=== PATIENT | female | born 2005 | race African-American/Black ===

== ENCOUNTER 2024-12-05 15:33 | Emergency (ER) | payer MEDICAID ==
[~2024-12-05] VITALS: Ht 170.2 cm; Wt 58.0 kg
[2024-12-05 15:36] VITALS: O2SAT 100
[2024-12-05] MEDS ORDERED: SODIUM CHLORIDE 0.9% 1,000 ML IV ONE (15:45)
[2024-12-05] MEDS ORDERED: METOCLOPRAMIDE HCL 10MG/2ML VIAL IV ONE (16:00)
[2024-12-05 16:40] LABS: BASOPHILS % 0.3 % (0.0-2.0); DIFFERENTIAL COMMENT 0; EOSINOPHILS % 0.6 % (0.0-5.0); HEMATOCRIT. 32.8 % (36.0-48.0); HEMOGLOBIN. 10.4 g/dL (12.0-16.0); LYMPHOCYTES % 25.1 % (20.0-50.0); MEAN CORPUSCULAR HEMOGLOBIN 23.7 pg (28.0-32.0); MEAN CORPUSCULAR HGB CONC 31.7 g/dL (31.0-37.0); MEAN CORPUSCULAR VOLUME 74.9 fL (81.0-99.0); MONOCYTES % 8.8 % (2.0-8.0); NEUTROPHILS % 65.2 % (40.0-76.0); PLATELET 196 x1000/uL (130-400); RED BLOOD CELL COUNT 4.37 mill/uL (4.2-5.4); RED CELL DISTRIBUTION WIDTH 16.9 % (11.6-14.6); WHITE BLOOD COUNT 4.9 x1000/uL (4.5-11.0)
[2024-12-05 16:48] LABS: CHLORIDE 108 mEq/L (98-107); POTASSIUM 3.6 mEq/L (3.5-5.1); SODIUM 139 mEq/L (136-145)
[2024-12-05 16:49] LABS: CALCIUM 9.3 mg/dL (8.7-10.4); CARBON DIOXIDE 28 mEq/L (21-32)
[2024-12-05 16:53] LABS: IRON 38 ug/dL (50-170)
[2024-12-05 16:54] LABS: CREATININE 0.7 mg/dL (0.6-1.0); GLUCOSE 96 mg/dL (70-105); UREA NITROGEN BLOOD 6 mg/dL (9-23)
[2024-12-05 16:56] LABS: ALANINE AMINOTRANSFERASE < 7 IU/L (10-49); ALBUMIN 4.1 g/dL (3.2-4.8); ASPARTATE AMINOTRANSFERASE 15 IU/L (<34); BILIRUBIN TOTAL 0.3 mg/dL (0.1-1.0); PROTEIN TOTAL 7.5 g/dL (6.0-8.3); TOTAL IRON BINDING CAPACITY 336 ug/dl (250-425)
[2024-12-05 16:57] LABS: HCG SCREEN NEGATIVE
[2024-12-05 17:40] LABS: BILIRUBIN DIRECT < 0.1 mg/dL (<=3.0); TROPONIN I HIGH SENSITIVITY < 4 ng/L (3.0-34)
[2024-12-05] MEDS ORDERED: FERR-71 MT (17:43)
[2024-12-05] MEDS ORDERED: DOCU-15 MT (17:43)
[2024-12-05 18:03] VITALS: BP 111/64; PULSE 70; RESP 16; TEMP 36.9; O2SAT 100
== END 2024-12-05 18:06 | disposition home or self-care (01) ==
LOC: ER 15:33
DX: D50.9 Iron deficiency anemia, unspecified (principal); Z79.899 Other long term (current) drug therapy
CPT/HCPCS: 80076; 80048; 84703; 83880; 83540; 83550; 85025; 85379; 84484; 36415; 71045; 70450; 93005; 99285; J7030; Z7610 ×3; 96374; A4606